=== PATIENT | female | born 1990 | race Caucasian/White ===

== ENCOUNTER 2017-11-22 01:05 | Emergency (ER) | payer BC, OTHER ==
--- NOTE | 2017-11-22 01:11 | EDPHY ---
H & P Stated Complaint: PANIC ATTACK FOR PAST 1 HOUR Time Seen by Provider: 11/22/17 01:11 HPI/ROS: HPI CHIEF COMPLAINT: Panic attack x1 hour. HISTORY OF PRESENT ILLNESS: Patient is had a 27-year-old female, she has a history of anxiety and panic attacks. She presents emergency room by private vehicle for panic attack. She states this started 1 hr ago. Sudden onset. She is hyperventilating and tearful she feels very anxious. She states her hands returning and segundo. She denies chest pain or shortness of breath. Upon arrival to the emergency room she is anxious and hyperventilating. Past Medical History: Anxiety/panic attack Past Surgical History: Denies surgical history Social History: Denies drugs alcohol tobacco Family History: Noncontributory ROS REVIEW OF SYSTEMS: A comprehensive 10 point review of systems is otherwise negative aside from elements mentioned in the history of present illness. Exam Constitutional anxious triage nursing summary reviewed, vital signs reviewed, awake/alert. Eyes normal conjunctivae and sclera, EOMI, PERRLA. HENT normal inspection, atraumatic, moist mucus membranes, no epistaxis, neck supple/ no meningismus, no raccoon eyes. Respiratory clear to auscultation bilaterally, normal breath sounds, no respiratory distress, no wheezing. Cardiovascular rate normal, regular rhythm, no murmur, no edema, distal pulses normal. Gastrointestinal soft, non-tender, no rebound, no guarding, normal bowel sounds, no distension, no pulsatile mass. Genitourinary no CVA tenderness. Musculoskeletal no midline vertebral tenderness, full range of motion, no calf swelling, no tenderness of extremities, no meningismus, good pulses, neurovascularly intact. Skin pink, warm, & dry, no rash, skin atraumatic. Neurologic awake, alert and oriented x 3, AAOx3, moves all 4 extremities equally, motor intact, sensory intact, CN II-XII intact, normal cerebellar, normal vision, normal speech. Psychiatric normal mood/affect. Heme/Lymph/Immune no lymphadenopathy. Differential Diagnosis: Includes but is not limited to in a particular order acute anxiety, panic attack, hyperventilation syndrome Medical Decision Making: Plan for this patient 1 mg p. O. Ativan and re- evaluate. Re-evaluation: 0202: Re-examination at this time patient is feeling much better. She has stopped hyperventilating. She received 1 mg p.o. Ativan is feeling much better. She would like to go home. Vital signs are stable. She feels much better. Clinical diagnosis of anxiety/ panic attack. Return precautions discussed with her. Source: Patient - Personal History LMP (Females 10-55): 1-7 Days Ago Current Tetanus/Diphtheria Vaccine: Yes Current Tetanus Diphtheria and Acellular Pertussis (TDAP): Yes - Medical/Surgical History Hx Asthma: No Hx Chronic Respiratory Disease: No Hx Diabetes: No Hx Cardiac Disease: No Hx Renal Disease: No Hx Cirrhosis: No Hx Alcoholism: No Hx HIV/AIDS: No Hx Splenectomy or Spleen Trauma: No Other PMH: age 22 deviated septum sx, - Social History Smoking Status: Never smoked Constitutional: Initial Vital Signs Temperature (C) 36.3 C 11/22/17 01:06 Heart Rate 115 H 11/22/17 01:06 Respiratory Rate 20 11/22/17 01:06 Blood Pressure 133/93 H 11/22/17 01:06 O2 Sat (%) 99 11/22/17 01:06 O2 Delivery Mode Room Air Allergies/Adverse Reactions: No Known Allergies Allergy (Unverified 11/22/17 01:09) Home Medications: Medication Instructions Recorded NK [No Known Home Meds] 11/22/17 Medical Decision Making - Data Points Medications Given: Discontinued Medications Lorazepam (Ativan) 1 mg PO ONCE ONE Stop: 11/22/17 01:17 Last Admin: 11/22/17 01:19 Dose: 1 mg Departure - Departure Disposition: Home, Routine, Self-Care Clinical Impression: Panic attack Condition: Good Instructions: Anxiety (ED), Panic Attack (ED) Additional Instructions: 1. Follow up with her primary care doctor 2. Return emergency room if you have worsening symptoms questions or concerns.
[2017-11-22] MEDS ORDERED: LORazepam 1 MG TAB PO ONE (01:16)
[2017-11-22 02:14] VITALS: BP 119/78
== END 2017-11-22 02:16 | disposition home or self-care (01) ==
DX: F41.0 Panic disorder [episodic paroxysmal anxiety] (principal)